=== PATIENT | female | born 1995 | race Native Hawaiian/Other Pacific Islander ===

== ENCOUNTER 2018-04-08 07:37 | Emergency (ER) | payer OTHER | END 2018-04-08 08:18 | disposition home or self-care (01) | LOC: M ED 07:37 | DX: O99.89 Other specified diseases and conditions complicating pregnancy, childbirth and the puerperium (principal); H00.011 Hordeolum externum right upper eyelid; Z3A.39 39 weeks gestation of pregnancy | CPT/HCPCS: 99282 ==

== ENCOUNTER 2018-04-17 18:18 | Inpatient (IN) | payer OTHER ==
[2018-04-17] MEDS ORDERED: PENICILLIN G POTASSIUM 5 MU VIAL As Ordered (19:04)
[2018-04-17] MEDS: LR 1,000 ML IV (19:04)
[2018-04-17] MEDS ORDERED: PROMETHAZINE INJ 25 MG/ML VIAL (J2550) As Ordered (19:12)
[2018-04-17] MEDS: NALBUPHINE HCL 10 MG/ML AMP (J2300) IV (19:18)
[2018-04-17] MEDS: PENICILLIN G POTASSIUM IV 5 MU in D5W MINI-BAG PLUS 100 ML IV (19:20)
[2018-04-17] MEDS: LACTATED RINGER'S 1000 ML IV (19:20)
[2018-04-17] MEDS: PROMETHAZINE INJ 25 MG/ML VIAL (J2550) IV (19:21)
[2018-04-17 19:23] LABS: HEMATOCRIT 35.8 % (36.0-47.0); HEMOGLOBIN 12.1 g/dl (12.0-15.5); MEAN CORPUSCULAR HGB CONC 33.8 g/dl (32.0-36.5); MEAN CORPUSCULAR VOLUME 97.5 fl (80.0-96.0); PLATELET COUNT, AUTOMATED 176 10^3/uL (150-450); RED BLOOD COUNT 3.67 10^6/uL (4.00-5.40); RED CELL DISTRIBUTION WIDTH 11.9 % (11.5-14.5); WHITE BLOOD COUNT 13.7 10^3/uL (4.0-10.0)
[2018-04-17] MEDS ORDERED: OXYTOCIN 30 UNITS IN 0.9% NaCl 500ML IV BAG (J2590) As Ordered (20:00)
[2018-04-17] MEDS ORDERED: RHOGAM 300 MCG (1500 IU) INJ (J2790) IM (21:15)
[2018-04-17] MEDS ORDERED: DIBUCAINE 1% OINTMENT 30GM TOP (21:15)
[2018-04-17] MEDS ORDERED: MEASLES,MUMPS,RUBELLA VACCINE INJ (MMR-II) (90707) SC (21:15)
[2018-04-17] MEDS ORDERED: METOCLOPRAMIDE INJ 10MG/2ML VIAL (J2765) IV (21:15)
[2018-04-17] MEDS: LIDOCAINE 1% MDV 20ML VIAL INFIL (22:24)
[2018-04-17] MEDS: OXYTOCIN DRIP 30 UNITS in APPROPRIATE DILUENT 1 EA IV (22:24)
[2018-04-17] MEDS ORDERED: PENICILLIN G POTASSIUM IV 2.5 MU in APPROPRIATE DILUENT 1 EA IV (23:00)
[2018-04-17 23:14] LABS: HBSAG L&D NEGATIVE (NEGATIVE)
[2018-04-18] MEDS: PRENATAL VITAMINS CHEWABLE TABLET PO (08:04)
[2018-04-18] MEDS: IBUPROFEN 800 MG TAB PO ×2 (08:07→20:24)
[2018-04-18] MEDS: DOCUSATE SODIUM 100 MG CAP PO ×2 (08:08→20:24)
[2018-04-18] MEDS: ACETAMINOPHEN TAB 650MG DOSE (2X325MG) PO (23:35)
[2018-04-19] MEDS: PRENATAL VITAMINS CHEWABLE TABLET PO (09:21)
[2018-04-19] MEDS: DOCUSATE SODIUM 100 MG CAP PO (09:21)
== END 2018-04-19 12:50 | disposition home or self-care (01) | DRG 775 ==
LOC: M LDO 18:18 → M LDI 18:54 → M OBS 22:31
PROVIDERS: Obstetrics & Gynecology
PROC: 10E0XZZ Delivery of Products of Conception, External Approach (ICD-10-PCS; principal; 2018-04-17)
PROC: 0HQ9XZZ Repair Perineum Skin, External Approach (ICD-10-PCS; 2018-04-17)
DX: O48.0 Post-term pregnancy (principal); Z37.0 Single live birth; Z3A.40 40 weeks gestation of pregnancy; O99.820 Streptococcus B carrier state complicating pregnancy; O70.0 First degree perineal laceration during delivery

== ENCOUNTER → 2018-10-06 | Outpatient (CLI) | payer OTHER ==
[~2018-10-06] MED LIST: ACYC400T PO; ERYTOIN8 OD; IBUP-1114 PO; MAPA500T2 PO; PREN200C PO
[2018-10-06 13:15] LABS: COLLAGEN EPINEPHRINE 153 SECONDS (74-162)
== END ==
LOC: M LAB 11:40
PROVIDERS: ATTEND Ophthalmology
DX: H00.11 Chalazion right upper eyelid (principal); H00.12 Chalazion right lower eyelid

== ENCOUNTER 2019-07-24 01:13 | Inpatient (IN) | payer OTHER ==
[~2019-07-24] VITALS: Ht 180.3 cm; Wt 99.5 kg
[2019-07-24] VITALS (9 sets, daily range): BP systolic 112–134; BP diastolic 50–76
[2019-07-24] MEDS ORDERED: OXYTOCIN 30 UNITS IN 0.9% NaCl 500ML IV BAG (J2590) As Ordered ONE (01:27)
[2019-07-24] MEDS ORDERED: OXYTOCIN DRIP 30 UNITS in IV 1 EA IV SCH (02:10)
[2019-07-24] MEDS ORDERED: IBUPROFEN 600 MG TAB PO PRN (02:15)
[2019-07-24] MEDS ORDERED: RHOGAM 300 MCG (1500 IU) INJ (J2790) IM SCH (02:15)
[2019-07-24] MEDS ORDERED: DIBUCAINE 1% OINTMENT 30GM TOP PRN (02:15)
[2019-07-24] MEDS ORDERED: ACETAMINOPHEN TAB 650MG DOSE (2X325MG) PO PRN (02:15)
[2019-07-24] MEDS ORDERED: PROMETHAZINE 25 MG TAB PO PRN (02:15)
[2019-07-24] MEDS ORDERED: DOCUSATE SODIUM 100 MG CAP PO PRN (02:15)
[2019-07-24] MEDS ORDERED: MEASLES,MUMPS,RUBELLA VACCINE INJ (MMR-II) (90707) SC SCH (02:15)
--- NOTE | 2019-07-24 02:23 | DNPDOC ---
[facility] Delivery Note Delivery Note DATE OF DELIVERY: 24Jul2019 at ~0145 PREDELIVERY DIAGNOSIS: Term active labor POST DELIVERY DIAGNOSIS: Delivered. PROCEDURE: Spontaneous vaginal delivery [facility] CONSULTANT: Dr. Crawford ANESTHESIA: None ESTIMATED BLOOD LOSS: 300 mL. FINDINGS: Viable female infant, 3640 grams, Apgars 8/9 DELIVERY SUMMARY: Aleisha presented to L&D in active labor with an urge to push. She progressed rapidly to C/C/+2 and had SROM, clear fluid. The bed was broken down and she was prepped for delivery. She began pushing and with excellent effort her delivered over only three sets of pushes. presentation was direct OP with restitution to ROT. The left anterior shoulder delivered with gentle traction followed easily by the remainder of the body. The was dried and stimulated on the field and a bulb suction was used. The was then placed on the maternal abdomen and cried vigorously. The three vessel cord was then clamped and cut by the FOB under my direction. Third stage was then completed with gentle traction on the cord and it was productive of an intact placenta. The uterine fundus was firmed with massage and pitocin was administered via IV bolus. Inspection of the vagina, perineum, and cervix revealed a midline, first degree laceration. This was repaired in the usual fashion with 3-0 vicryl suture after injection of lidocaine for analgesia. There was excellent cosmesis and hemostasis after the repair. The fundus was palpated again and was firm. Sponge, instrument, and needle counts were correct X2. Mother and infant stable when I left the room. DO JASMINA Newsome CHRISTOPHER J. DO Jul 24, 2019 02:23
[2019-07-24 02:24] LABS: HEMATOCRIT 35.5 % (36.0-47.0); HEMOGLOBIN 11.4 g/dl (12.0-15.5); MEAN CORPUSCULAR HEMOGLOBIN 31.8 pg (27.0-33.0); MEAN CORPUSCULAR HGB CONC 32.1 g/dl (32.0-36.5); MEAN CORPUSCULAR VOLUME 98.9 fl (80.0-96.0); PLATELET COUNT, AUTOMATED 177 10^3/uL (150-450); RED BLOOD COUNT 3.59 10^6/uL (4.00-5.40); WHITE BLOOD COUNT 8.2 10^3/uL (4.0-10.0)
--- NOTE | 2019-07-24 02:51 | HPEPDOC ---
Obstetrical History & Physical General Date of Admission Jul 24, 2019 at 01:20 History of Present Illness 24 yo at 40+2 weeks gestation by 11+1 week US on 01Jan2019 presented to L&D in active labor and delivered her infant shortly after arrival. See delivery note. Chief Complaint: Contractions, term Information Provided By: Patient Age: 24 : 2 Term: 1 Pre-term: 0 Abortions: 0 Livin Care Care: Good Care Dating Final EDC: Jul 22, 2019 Final EDC for Daily Update: Jul 22, 2019 Final EDC by: 1st trimester (US) (11+1 week US on 01Jan2019 set DONNA of [id number]) Antepartum Course Diagnos(e)s Mild anemia --> on ferrous and vit C HSV history --> has been on prophylactic valtrex since 36 weeks Past Medical History Past Obstetrical History : Past Obstetrical History: Multigravida (G1 - term , uncomplicated, pelvic proven to 8lbs 7oz) Type of Delivery: Spontaneous Vaginal Del. Complications: No MANAGER UTILIZATION MANAGEMENT History: Herpes simplex virus(HSV) (History of HSV, last outbreak 2017, has been on prophylactic valtrex since 36 weeks) Past Medical History Medical History HSV history --> last outbreak 2017 Surgical History: [place] teeth, Other (eye procedure) Family History Significant Family History: No pertinent family hx Social History Marital Status: Family situation: Spouse/partner home Psychosocial History: No pertinent psych hx * Smoker: non-smoker Alcohol: Denies Drugs: denies Imunizations Tdap status: declined Influenza Status: current Allergies Coded Allergies: No Known Allergies (Unverified , 04/08/18) Medications Scheduled Docosahexanoic Acid ( Dha) 200 Mg Cap, 1 CAP PO DAILY Scheduled PRN Acetaminophen (Mapap) 500 Mg Tab, 650 MG PO Q4HP PRN for PAIN Ibuprofen (Ibuprofen) 400 Mg Tab, 800 MG PO Q8HP PRN for PAIN Physical Examination Physical Examination GENERAL: Alert and oriented times three. ABDOMEN: Gravid and non-tender to touch. FETUS: Is vertex (VTX) by sterile vaginal examination (SVE) EXTREMITIES: No edema. PELVIC: No HSV lesions on pelvic exam just prior to delivery Vital Signs/I&O Vital Signs Date Time Temp Pulse Resp B/P (MAP) Pulse Ox O2 Delivery O2 Flow Rate FiO2 07/24/19 02:20 76 18 123/59 (80) Laboratory Data 24H LABS Laboratory Tests 2 07/24/19 01:25: Nucleated Red Blood Cells % (auto) 0.0 07/24/19 01:29: Serology Scanned Report Hepatitis B Testing CBC/BMP Laboratory Tests 07/24/19 01:25 Urine Culture: No Growth Pertinent Laboratoy Data Blood Type: O+ RBC Antibody Screen: Negative HIV: Negative Hepatitis B: Negative Hepatitis C: Unknown Rapid Plasma Reagin: Nonreactive Rubella: Immune Varicella: Immune Chlamydia/Gonorrhea: Negative Group B Streptococcus: Negative Quad Screen Test: Unknown (Patient had low risk cff DNA genetic screening) Cystic Fibrosis: Unknown Glucose Tolerance Test: 109 Anatomy Ultrasound Placenta Location: Anterior Normal Anatomy: Yes Placenta Previa: No Vaginal Examination Dilation: 9 cm Effacement: 100% Station: 0 Cervical Consistency: Soft Cervical Position: Anterior Presentation: Cephalic presentation Position: Vertex (occiput) Assessment Heart Rate (FHR): 140 Variability: Moderate Accelerations: Positive Decelerations: Early, Variable Tocometer Contractions: Yes Frequency: regular, every 1-3 min. Strength: palpated as strong Assessment/Plan Assessment 24 yo at 40+2 weeks gestation presented to L&D in active labor and de livered shortly after arrival. Has been on prophylactic valtrex since 36 weeks and had no lesions or prodromal symptoms upon arrival. Plan Patient delivered shortly after arrival. See delivery note for details. Will proceed with routine care. KIMBERLEY FREEDMAN DO Jul 24, 2019 02:51
[2019-07-24] MEDS: IBUPROFEN 800 MG TAB PO PRN ×2 (03:24→16:20)
[2019-07-24] MEDS: ACETAMINOPHEN 500 MG TAB PO PRN ×2 (04:48→23:27)
[2019-07-24] MEDS: PRENATAL VITAMINS CHEWABLE TABLET PO SCH (09:00)
[2019-07-25] MEDS: IBUPROFEN 800 MG TAB PO PRN (04:43)
[2019-07-25 06:00] VITALS: BP 100/51
[2019-07-25] MEDS ORDERED: IBUP80TA PO (06:50)
[2019-07-25] MEDS ORDERED: DOCU100C16 PO (06:50)
[2019-07-25] MEDS ORDERED: DIBU10OI TOP (06:50)
[2019-07-25] MEDS: PRENATAL VITAMINS CHEWABLE TABLET PO SCH (08:05)
--- NOTE | 2019-07-25 18:47 | DSES ---
DATE OF ADMISSION: 07/24/2019 DATE OF DISCHARGE: 08/13/2019 This lady is a 24-year-old 2, now para 2 admitted at 40 weeks and 2 days of gestation in active labor, had a precipitous spontaneous vaginal delivery, female weighing 3640 grams, scores of 8 and 9 at one and five minutes respectively. She had a first-degree tear which was repaired in the usual fashion. On her second day, we discussed phlebitis, cystitis, mastitis, endometritis and cellulitis, diet, exercise, pain management, perineal, breast and wound care. The rest examination is unremarkable. Normocephalic, atraumatic. Neck: Full range of motion. Pupils equal and reactive to light. Distal pulses are symmetric. No evidence of deep vein thrombosis (DVT), pulmonary embolism (PE) or superficial phlebitis. Chest is clear bilaterally to bases. No wheezes or rhonchi. No costovertebral angle (CVA) tenderness. Presently breast-feeding. Uterus contracted well down, uterus 2 below. Lochia is moderate. Four quadrant bowel sounds are noted. Perineum is healing. Blood pressure is 100/51, respirations are 16, pulse is 60, temperature 98.2. Admitting hemoglobin was 11.4, hematocrit 35.5 and platelets were 177. In summary, we have a term gestation, delivered a live female infant, discharged for six-week checkup with [facility]. Medications were dispensed at [facility]. The baby will be taken to [facility] in the next few days for evaluation. All questions were answered. A 20-minute discussion.
== END 2019-07-25 14:30 | disposition home or self-care (01) | DRG 807 ==
LOC: M LDO 01:13 → M LDI 01:20 → M OBS 04:14
PROVIDERS: ADMIT Obstetrics & Gynecology; ATTEND Obstetrics & Gynecology
PROC: 10E0XZZ Delivery of Products of Conception, External Approach (ICD-10-PCS; principal; 2019-07-24)
PROC: 0HQ9XZZ Repair Perineum Skin, External Approach (ICD-10-PCS; 2019-07-24)
DX: O48.0 Post-term pregnancy (principal); Z37.0 Single live birth; Z3A.40 40 weeks gestation of pregnancy; O70.0 First degree perineal laceration during delivery